=== PATIENT | female | born 1955 | race Caucasian/White ===

== ENCOUNTER → 2016-02-23 | Outpatient (CLI) | payer OTHER ==
--- NOTE | 2016-02-23 12:32 | BD ---
EXAMINATION TYPE: MG DEXA axial skeleton. DATE OF EXAM: 02/23/2016 7:40 AM COMPARISON: Prior exam inserted July 2010 CLINICAL HISTORY: no signs or symptoms post menopausal Height: 5'5 Weight: 185 FRAX RISK QUESTIONS: Alcohol (3 or more units per day): no Family History (Parent hip fracture): no Glucocorticoids (More than 3mos): no (Ex: prednisone, prednisolone, methylprednisolone, dexamethasone, and hydrocortisone). History of Fracture in Adulthood: no Secondary Osteoporosis: 1. Type 1 Diabetes: no 2. Hyperthyroidism: no 3. Menopause before 45: no 4. Malnutrition: no 5. Chronic liver disease: no Rheumatoid Arthritis: no Current Tobacco Use: no RISK FACTORS HISTORY OF: Postmenopausal woman: Yes MEDICATIONS: Additional Medications: Additional History: post menopausal EXAM MEASUREMENTS: Bone mineral densitometry was performed using the [employer] System. Bone mineral density as measured about the Lumbar spine is: ----- L1-L4(G/cm2): 1.383 T Score Values are as follows: ----- L2: 1.1 ----- L3: 2.0 ----- L4: 2.2 ----- L1-L4: 1.7 Bone mineral density has: Increased 1.1% since study of: 07/23/2010 Bone mineral density about the R hip (g/cm2): 0.985 Bone mineral density about the L hip (g/cm2): 1.090 T Score values are as follows: -----R Neck: 0.4 -----L Neck: -0.4 -----R Intertrochanter: 0.5 -----L Intertrochanter: 0.2 Bone mineral density has: Decreased -1.8% since study of: 07/23/2010 IMPRESSION: Normal (Values between +1 and -1 indicate normal bone mass) NOTE: T-SCORE=SD OF THE YOUNG ADULT MEAN.
--- NOTE | 2016-02-24 11:52 | MM ---
Reason for exam: screening (asymptomatic). Last mammogram was performed 1 year and 4 months ago. History: Patient is postmenopausal. Physical Findings: A clinical breast exam by your physician is recommended on an annual basis and results should be correlated with mammographic findings. MG 3D Screening Mammo W/Cad Bilateral CC and MLO view(s) were taken. Prior study comparison: October 31, 2014, bilateral MG screening mammo w CAD. January 18, 2013, bilateral digital screening mammo w/CAD. There are scattered fibroglandular densities. Finding: There are typically benign calcifications in both breasts. There is a chronic nodularity in the right breast. No significant changes in finding since October 31, 2014 and January 18, 2013. ASSESSMENT: Benign, BI-RAD 2 RECOMMENDATION: Routine screening mammogram of both breasts in 1 year.
== END | disposition home or self-care (01) ==
LOC: RADMAMWWP 07:00
PROVIDERS: ATTEND Obstetrics & Gynecology
DX: Z12.31 Encounter for screening mammogram for malignant neoplasm of breast (principal); Z78.0 Asymptomatic menopausal state
CPT/HCPCS: 77080; 77052; 77063; G0202

== ENCOUNTER → 2017-04-18 | Outpatient (CLI) | payer OTHER ==
--- NOTE | 2017-04-19 13:12 | MM ---
Reason for exam: screening (asymptomatic). Last mammogram was performed 1 year and 2 months ago. History: Patient is postmenopausal. Physical Findings: A clinical breast exam by your physician is recommended on an annual basis and results should be correlated with mammographic findings. MG 3D Screening Mammo W/Cad Bilateral CC and MLO view(s) were taken. Prior study comparison: February 23, 2016, bilateral MG 3d screening mammo w/cad. October 31, 2014, bilateral MG screening mammo w CAD. The breast tissue is heterogeneously dense. This may lower the sensitivity of mammography. No suspicious abnormality. No significant changes when compared with prior studies. ASSESSMENT: Negative, BI-RAD 1 RECOMMENDATION: Routine screening mammogram of both breasts in 1 year.
== END | disposition home or self-care (01) ==
LOC: RADMAMWWP 06:55
PROVIDERS: ATTEND Obstetrics & Gynecology
DX: Z12.31 Encounter for screening mammogram for malignant neoplasm of breast (principal)
CPT/HCPCS: 77063; 77067

== ENCOUNTER → 2018-05-15 | Outpatient (CLI) | payer OTHER ==
--- NOTE | 2018-05-15 11:18 | MM ---
Reason for exam: screening (asymptomatic). Last mammogram was performed 1 year and 1 month ago. History: Patient is postmenopausal. Physical Findings: A clinical breast exam by your physician is recommended on an annual basis and results should be correlated with mammographic findings. MG 3D Screening Mammo W/Cad Bilateral CC and MLO view(s) were taken. Prior study comparison: April 18, 2017, bilateral MG 3d screening mammo w/cad. February 23, 2016, bilateral MG 3d screening mammo w/cad. The breast tissue is heterogeneously dense. This may lower the sensitivity of mammography. Finding #1: There is a 7 mm equal density (isodense), obscured mass in the subareolar position of the right breast. Finding #2: There are typically benign calcifications in both breasts. ASSESSMENT: Incomplete: need additional imaging evaluation, BI-RAD 0 RECOMMENDATION: Special view mammogram of the right breast. If lesion persists on supplemental views, image directed ultrasound is recommended. [facility] will attempt to contact patient to return for supplemental views and ultrasound if indicated.
== END | disposition home or self-care (01) ==
LOC: RADMAMWWP 06:57
PROVIDERS: ATTEND Obstetrics & Gynecology
DX: Z12.31 Encounter for screening mammogram for malignant neoplasm of breast (principal)
CPT/HCPCS: 77063; 77067

== ENCOUNTER → 2018-05-22 | Outpatient (CLI) | payer OTHER ==
--- NOTE | 2018-05-22 10:58 | MM ---
Reason for exam: additional evaluation requested from abnormal screening. Last mammogram was performed less than 1 month ago. History: Patient is postmenopausal. Physical Findings: Nurse did not find any significant physical abnormalities on exam. MG 3D Work Up W/Cad RT Spot compression CC, spot compression MLO, and ML view(s) were taken of the right breast. Prior study comparison: May 15, 2018, bilateral MG 3d screening mammo w/cad. April 18, 2017, bilateral MG 3d screening mammo w/cad. There are scattered fibroglandular densities. Benign calcifications in the right breast. No significant new findings when compared with previous films. These results were verbally communicated with the patient and result sheet given to the patient on 05/22/18. ASSESSMENT: Probably benign, BI-RAD 3 RECOMMENDATION: Follow-up diagnostic mammogram of the right breast in 6 months.
== END ==
LOC: RADMAMWWP 10:18
PROVIDERS: ATTEND Obstetrics & Gynecology
DX: R92.8 Other abnormal and inconclusive findings on diagnostic imaging of breast (principal)
CPT/HCPCS: 77061; 77065

== ENCOUNTER → 2018-08-20 | Outpatient (CLI) | payer OTHER ==
[2018-08-20 08:37] LABS: Basophils % (A) 1 %; Eosinophils # (A) 0.1 k/uL (0-0.7); Eosinophils % (A) 3 %; HGB 13.5 gm/dL (11.4-16.0); Lymphocytes # (A) 1.3 k/uL (1.0-4.8); Lymphocytes % (A) 28 %; MCH 29.9 pg (25.0-35.0); MCHC 32.2 g/dL (31.0-37.0); MCV 92.7 fL (80.0-100.0); Mean Platelet Volume 7.6; Monocytes # (A) 0.3 k/uL (0-1.0); Monocytes % (A) 7 %; Neutrophils # (A) 2.7 k/uL (1.3-7.7); Neutrophils % (A) 58 %; Platelet Count 243 k/uL (150-450); RBC 4.53 m/uL (3.80-5.40); RDW 14.8 % (11.5-15.5); WBC 4.6 k/uL (3.8-10.6)
[2018-08-20 16:19] LABS: African American GFR (CKD) 111.6 (60.0-200.0); Albumin 4.3 g/dL (3.80-4.90); Albumin/Globulin Ratio 2.53 (1.60-3.17); Anion Gap 10.2 mmol/L (4.00-12.00); BUN/Creat Ratio 38.33 Ratio (12.00-20.00); Calcium 9.6 mg/dL (8.7-10.3); Carbon Dioxide 24.8 mmol/L (21.6-31.8); Globulin 1.7 g/dL (1.6-3.3); LDL Cholesterol,Calculated 112.8 mg/dL (0.0-131.0); Potassium 4.6 mmol/L (3.5-5.5); Total Bilirubin 0.4 mg/dL (0.2-1.2); Uric Acid 4.1 mg/dL (2.9-7.7); VLDL Calculation 13.2 mg/dL (5.00-40.00)
[2018-08-20 17:07] LABS: Hemoglobin A1C 5.9 % (4.0-6.0)
[2018-08-20 17:59] LABS: Amorphous Sediment,Urine Moderate /hpf; Appearance,Urine Turbid (Clear); Bilirubin,Urine Negative (Negative); Blood,Urine Negative (Negative); Calcium Oxalate Crystals,Urine Moderate /hpf; Color,Urine Yellow; Glucose,Urine (UA) Negative (Negative); Ketones,Urine Negative (Negative); Leukocyte Esterase,Urine Large (Negative); Mucus,Urine Moderate /hpf; Nitrite,Urine Negative (Negative); Protein,Urine Negative (Negative); Specific Gravity,Urine 1.025 (1.001-1.035); Squamous Epithelial Cell,Urine 3 /hpf (0-4); Urobilinogen,Urine <2.0 mg/dL (<2.0)
== END | disposition home or self-care (01) ==
LOC: LABWHC1 07:36
PROVIDERS: ATTEND Internal Medicine
DX: E78.5 Hyperlipidemia, unspecified (principal); E55.9 Vitamin D deficiency, unspecified; R73.03 Prediabetes; M19.90 Unspecified osteoarthritis, unspecified site
CPT/HCPCS: 36415; 80053; 80061; 81001; 82306; 82550; 83036; 84439; 84443; 84550; 85025

== ENCOUNTER → 2020-03-03 | Outpatient (CLI) | payer MEDICARE, OTHER ==
--- NOTE | 2020-03-04 09:11 | MM ---
Reason for exam: additional evaluation requested from prior study. Last mammogram was performed 1 year and 9 months ago. History: Patient is postmenopausal. Physical Findings: Nurse did not find any significant physical abnormalities on exam. MG 3D Diag Mammo W/Cad LASHA Bilateral CC and MLO view(s) were taken. Prior study comparison: May 22, 2018, right breast MG 3d work up w/cad RT. May 15, 2018, bilateral MG 3d screening mammo w/cad. There are scattered fibroglandular densities. Anterior central right CC asymmetric density relatively similar to more recent prior. Precautionary 6 month follow up recommended. These results were verbally communicated with the patient and result sheet given to the patient on 03/03/19. ASSESSMENT: Probably benign, BI-RAD 3 RECOMMENDATION: Follow-up diagnostic mammogram of the right breast in 6 months.
== END | disposition home or self-care (01) ==
LOC: RADMAMWWP 14:15
PROVIDERS: ATTEND Obstetrics & Gynecology
DX: R92.8 Other abnormal and inconclusive findings on diagnostic imaging of breast (principal)
CPT/HCPCS: 77066; G0279; 77062

== ENCOUNTER → 2020-03-11 | Outpatient (CLI) | payer MEDICARE, OTHER ==
--- NOTE | 2020-03-12 07:21 | US ---
EXAMINATION TYPE: US pelvis complete transvag DATE OF EXAM: 03/11/2020 COMPARISON: US 08/26/2011 CLINICAL HISTORY: N81.4 Uterovaginal prolapse. TECHNIQUE: . Transabdominal sonographic images of the pelvis were acquired. Transvaginal sonographi c images were medically necessary to better assess the following anatomy: Uterus Date of LMP: Years ago per patient EXAM MEASUREMENTS: Uterus: 5.4 x 3.2 x 4.1 cm Endometrial Stripe: 0.2 cm Right Ovary: 1.2 x 0.8 x 0.9 cm Left Ovary: Obscured by bowel gas 1. Uterus: Retroverted wnl 2. Endometrium: wnl 3. Right Ovary: wnl 4. Left Ovary: Obscured by overlying bowel gas 5. Bilateral Adnexa: wnl as visualized 6. Posterior cul-de-sac: wnl IMPRESSION: Normal pelvic ultrasound
== END | disposition home or self-care (01) ==
LOC: RADUSWWP 16:20
PROVIDERS: ATTEND Obstetrics & Gynecology
DX: N81.4 Uterovaginal prolapse, unspecified (principal)
CPT/HCPCS: 76830; 76856

== ENCOUNTER → 2020-09-22 | Outpatient (CLI) | payer MEDICARE, OTHER ==
--- NOTE | 2020-09-22 09:23 | MM ---
Reason for exam: additional evaluation requested from prior study. Last mammogram was performed 7 months ago. History: Patient is postmenopausal. Physical Findings: Nurse did not find any significant physical abnormalities on exam. MG 3D Diag Mammo W/Cad RT CC and MLO view(s) were taken of the right breast. Prior study comparison: March 03, 2020, bilateral MG 3d diag mammo w/cad LASHA. There are scattered fibroglandular densities. The previous lateral anterior nodular asymmetry does not persist. No significant new findings when compared with previous films. These results were verbally communicated with the patient and result sheet given to the patient on 09/22/20. ASSESSMENT: Negative, BI-RAD 1 RECOMMENDATION: Routine screening mammogram of both breasts in 6 months. Back on schedule.
== END | disposition home or self-care (01) ==
LOC: RADMAMWWP 08:20
PROVIDERS: ATTEND Obstetrics & Gynecology
DX: N64.89 Other specified disorders of breast (principal); Z78.0 Asymptomatic menopausal state
CPT/HCPCS: 77065; G0279; 77061

== ENCOUNTER → 2021-05-11 | Outpatient (CLI) | payer MEDICARE, OTHER ==
--- NOTE | 2021-05-13 14:53 | MM ---
Reason for exam: screening (asymptomatic). Last mammogram was performed 8 months ago. History: Patient is postmenopausal. Physical Findings: A clinical breast exam by your physician is recommended on an annual basis and results should be correlated with mammographic findings. MG 3D Screening Mammo W/Cad Bilateral CC and MLO view(s) were taken. Prior study comparison: September 22, 2020, right breast MG 3d diag mammo w/cad RT. March 03, 2020, bilateral MG 3d diag mammo w/cad LASHA. There are scattered fibroglandular densities. No significant changes when compared with prior studies. ASSESSMENT: Benign, BI-RAD 2 RECOMMENDATION: Routine screening mammogram of both breasts in 1 year.
== END | disposition home or self-care (01) ==
LOC: RADMAMWWP 13:26
PROVIDERS: ATTEND Obstetrics & Gynecology
DX: Z12.31 Encounter for screening mammogram for malignant neoplasm of breast (principal); Z78.0 Asymptomatic menopausal state
CPT/HCPCS: 77063; 77067

== ENCOUNTER → 2021-06-11 | Outpatient (CLI) | payer MEDICARE, OTHER ==
--- NOTE | 2021-06-11 16:53 | BD ---
EXAMINATION TYPE: Axial Bone Density DATE OF EXAM: 06/11/2021 COMPARISON: NONE CLINICAL HISTORY: 66 year old Female. ICD-10 CODE: N95.1 POST MENOPAUSAL SYMPTOMS Height: 65 Weight: 184.3 FRAX RISK QUESTIONS: Alcohol (3 or more units per day): no Family History (Parent hip fracture): no Glucocorticoids (More than 3mos): no (Ex: prednisone, prednisolone, methylprednisolone, dexamethasone, and hydrocortisone). History of Fracture in Adulthood: no Secondary Osteoporosis: 1. Type 1 Diabetes: no 2. Hyperthyroidism: no 3. Menopause before 45: no 4. Malnutrition: no 5. Chronic liver disease: no Rheumatoid Arthritis: no Current Tobacco Use: no RISK FACTORS HISTORY OF: Surgery to Spine/Hip(right/left)/Wrist (right/left): no Family History of Osteoporosis: no Active: yes Diet low in dairy products/other sources of calcium: yes Postmenopausal woman: yes Lost more than 2 inches in height since high school: no MEDICATIONS: Additional History: EXAM MEASUREMENTS: Bone mineral densitometry was performed using the [employer] System. Bone mineral density as measured about the Lumbar spine is: ----- L1-L4(G/cm2): 1.364 T Score Values are as follows: ----- L1: 0.6 ----- L2: 1.0 ----- L3: 1.9 ----- L4: 2.2 ----- L1-L4: 1.5 Bone mineral density has: decreased -0.6 % since study of: 02.23.2016 Bone mineral density about the R hip (g/cm2): 1.014 Bone mineral density about the L hip (g/cm2): 1.053 T Score values are as follows: -----R Neck: -0.2 -----L Neck: 0.1 -----R Total: 05 -----L Total: 0.7 Bone mineral density has: decreased -0.3 % since study of: 02.23.2016 FRAX%s: The graph provided illustrates a 6.9% chance for a major osteoporotic fx and a 0.3% chance fo r the hips probability for fx in 10 years time. IMPRESSION: Normal (Values between +1 and -1 indicate normal bone mass). Consider repeating this study in 5 year s or sooner if there is some new clinical indication. NOTE: T-SCORE=SD OF THE YOUNG ADULT MEAN.
== END | disposition home or self-care (01) ==
LOC: RADBDWWP 07:19
PROVIDERS: ATTEND Obstetrics & Gynecology
DX: N95.1 Menopausal and female climacteric states (principal)
CPT/HCPCS: 77080

== ENCOUNTER → 2021-07-02 | Outpatient (CLI) | payer MEDICARE, OTHER ==
[2021-07-02 16:04] LABS: Basophils # (A) 0.06 X 10*3/uL (0.00-0.10); Basophils % (A) 1.2 %; Eosinophils # (A) 0.09 X 10*3/uL (0.04-0.35); Eosinophils % (A) 1.7 %; HCT 44.5 % (37.2-46.3); HGB 14.4 g/dL (12.0-15.0); Immature Grans, Automated 0.4 %; Lymphocytes # (A) 1.55 X 10*3/uL (0.90-5.00); Lymphocytes % (A) 29.8 %; MCH 29.4 pg (27.0-32.0); MCHC 32.4 g/dL (32.0-37.0); MCV 90.8 fL (80.0-97.0); Mean Platelet Volume 10.8 fL (9.5-12.2); Monocytes # (A) 0.49 X 10*3/uL (0.20-1.00); Monocytes % (A) 9.4 %; NRBC Per 100 WBC 0 /100 WBCS (0.0-0.0); Neutrophils # (A) 2.99 X 10*3/uL (1.80-7.70); Neutrophils % (A) 57.5 %; Platelet Count 256 X 10*3/uL (140-440); RDW 14.4 % (11.5-14.5)
[2021-07-02 16:17] LABS: African American GFR (CKD) 102.1 (60.0-200.0); Anion Gap 12.3 mmol/L (10.00-18.00); BUN/Creat Ratio 26.2 Ratio (12.00-20.00); Blood Urea Nitrogen 18.6 mg/dL (9.0-27.0); Carbon Dioxide 26.7 mmol/L (20.0-27.5); Non-African American GFR(CKD) 88.1 (60.0-200.0); Potassium 4.7 mmol/L (3.5-5.5)
== END | disposition home or self-care (01) ==
LOC: LABPAT 07:43
PROVIDERS: ATTEND Obstetrics & Gynecology
DX: Z01.812 Encounter for preprocedural laboratory examination (principal)
CPT/HCPCS: 36415; 80048; 85025

== ENCOUNTER 2021-07-12 05:57 | Observation (INO) | payer MEDICARE, OTHER ==
[2021-07-09 09:07] VITALS: BMI 29.9
--- NOTE | 2021-07-11 07:38 | P.HPOB ---
History of Present Illness H&P Date: 07/11/21 Chief Complaint: Cystocele with uterine prolapse This is a 66 y.o. female, 3, para 3, who presents for total vaginal hysterectomy with anterior and posterior vaginal colporrhaphy, possible total abdominal hysterectomy with bilateral salpingooophorectomy, due to grade 3 uterine prolapse, grade 3 cystocele, and grade 1 rectocele. She was evaluated by Dr. Hernandez who does not feel she needs a sling at the time of surgery. Her symptoms include vaginal mass, vaginal irritation and pressure, but no urinary incontinence or pain. Her symptoms have gradually progressed over the last couple years and started after prolonged standing. OB Hx: . History of 3 vaginal deliveries. [employer] Hx: No history of STDs Social Hx: . Retired. Review of Systems Constitutional: Denies chills, Denies fever Eyes: denies blurred vision, denies pain Ears, nose, mouth and throat: Denies headache, Denies sore throat Cardiovascular: Denies chest pain, Denies shortness of breath Respiratory: Denies cough Gastrointestinal: Denies abdominal pain, Denies diarrhea, Denies nausea, Denies vomiting Genitourinary: Reports prolapse symptoms, Denies dysuria, Denies hematuria, Denies stress incontinence Musculoskeletal: Reports myalgias Integumentary: Denies pruritus, Denies rash Neurological: Denies numbness, Denies weakness Psychiatric: Denies anxiety, Denies depression Past Medical History Past Medical History: Osteoarthritis (OA) Additional Past Medical History / Comment(s): uterine prolapse History of Any Multi-Drug Resistant Organisms: None Reported Past Surgical History: Joint Replacement, Tubal Ligation Additional Past Surgical History / Comment(s): arthroscopic jose g knees, partial left knee replaced; D&C w/hysteroscopy Past Anesthesia/Blood Transfusion Reactions: No Reported Reaction Past Psychological History: No Psychological Hx Reported Smoking Status: Never smoker Past Alcohol Use History: Occasional Past Drug Use History: None Reported - Past Family History Mother Family Medical History: No Reported History Father Family Medical History: Diabetes Mellitus Medications and Allergies Home Medications Medication Instructions Recorded Confirmed Type Calcium Carbonate/Vitamin D3 1 each PO DAILY 07/09/21 07/09/21 History [Calcium 600 mg-Vit D3 10 mcg (400 Unit)] Cholecalciferol [Vitamin D3 (25 50 mcg PO DAILY 07/09/21 07/09/21 History Mcg = 1000 Iu)] L.acidoph,Paracasei, B.lactis 1 each PO DAILY 07/09/21 07/09/21 History [Probiotic] Turmeric Root Extract [Turmeric] 1,000 mg PO DAILY 07/09/21 07/09/21 History Vitamin B Complex 1 each PO DAILY 07/09/21 07/09/21 History Allergies Allergy/AdvReac Type Severity Reaction Status Date / Time codeine AdvReac Nausea Verified 07/09/21 08:42 morphine AdvReac Nausea Verified 07/09/21 08:42 Exam Osteopathic Statement: *. No significant issues noted on an osteopathic structural exam other than those noted in the History and Physical/Consult. Gen: well developed, well-nourished female in no acute distress HEENT: within normal limits Heart: regular rate and rhythm Lungs: clear to auscultation bilaterally Abdomen: soft, non-tender Pelvic: uterus small, non-tender, with 3rd degree prolapse, grade 3 cystocele, and grade 1 rectocele. Small cervical polyp also noted. No adnexal masses or tenderness noted. Extremities: neg. Sari's Assessment and Plan (1) Cystocele with uterine prolapse Status: Acute Code(s): N81.4 - UTEROVAGINAL PROLAPSE, UNSPECIFIED SNOMED Code(s): 3870024715 Plan: Proceed with total vaginal hysterectomy with anterior and posterior vaginal repair, possible total abdominal hysterectomy with bilateral salpingooophorectomy. I have discussed the risks, benefits, and alternative therapies for the above- mentioned procedure and for both sedation/anesthesia as well as necessary blood products administration, if indicated, as they pertain to this patient. The patient has indicated her understanding and acceptance of the risks and procedures discussed.
[2021-07-12] MEDS ORDERED: LIDOCAINE 1% (10MG/ML) FOR IV START INTRADERMA PRN (06:10)
[2021-07-12] MEDS ORDERED: DEXAMETHASONE SOD PHOSPHATE 4 MG/ML 1 ML VIAL IV ONE (06:10)
[2021-07-12] MEDS ORDERED: ONDANSETRON 4 MG/2 ML VIAL IVP ONE (06:10)
[2021-07-12] MEDS ORDERED: ONDANSETRON 4 MG/2 ML VIAL ONE (06:36)
[2021-07-12] MEDS: LACTATED RINGERS 1,000 ML IV SCH (06:45)
[2021-07-12] MEDS ORDERED: fentaNYL (PF) 50 MCG/ML 2 ML AMP IV ONE (06:59)
[2021-07-12] MEDS ORDERED: MIDAZOLAM 2 MG/2 ML VIAL IV ONE (06:59)
[2021-07-12] MEDS ORDERED: fentaNYL (PF) 50 MCG/ML 2 ML AMP IV PRN (07:00)
[2021-07-12] MEDS ORDERED: GLYCOPYRROLATE 0.2 MG/ML 2 ML VIAL ONE (07:28)
[2021-07-12] MEDS ORDERED: MIDAZOLAM 2 MG/2 ML VIAL ONE (07:28)
[2021-07-12] MEDS ORDERED: fentaNYL (PF) 50 MCG/ML 2 ML AMP ONE (07:28)
[2021-07-12] MEDS ORDERED: MORPHINE SULFATE (PF) 0.3 MG/0.3 ML SYR ONE (07:28)
[2021-07-12] MEDS ORDERED: LIDOCAINE 2% INJ 20 MG/ML (2 ML VIAL) ONE (07:28)
[2021-07-12] MEDS ORDERED: NEOSTIGMINE 1 MG/ML 10 ML VIAL ONE (07:28)
[2021-07-12] MEDS ORDERED: SUCCINYLCHOLINE CHLORIDE 100 MG/5 ML SYR IV ONE (07:28)
[2021-07-12] MEDS ORDERED: diphenhydrAMINE 50 MG/ML 1 ML VIAL ONE (07:28)
[2021-07-12] MEDS ORDERED: ROCURONIUM 10 MG/ML (5 ML VIAL) IV ONE (07:28)
[2021-07-12] MEDS ORDERED: PROPOFOL 10 MG/ML 20 ML VIAL IV ONE (07:28)
[2021-07-12] MEDS ORDERED: BACITRACIN ZINC 500 UNIT/GM OINT 28.4 GM TUBE TOPICAL ONE ×2 (07:59→08:51)
[2021-07-12] MEDS ORDERED: LACTATED RINGERS 1,000 ML IV ONE (09:01)
--- NOTE | 2021-07-12 09:04 | P.OP ---
Date of Procedure: 07/12/21 Preoperative Diagnosis: Uterine prolapse with cystocele and rectocele Postoperative Diagnosis: Same Procedure(s) Performed: Total vaginal hysterectomy with anterior and posterior vaginal colporrhaphy Anesthesia: GETA, spinal (Duramorph) Surgeon: Keiry Vazquez [employer]: Michelle Corbin Estimated Blood Loss (ml): 60 Pathology: other (Uterus with cervix, vaginal mucosa) Condition: stable Disposition: floor Indications for Procedure: This is a 66 y.o. female, 3, para 3, who presents for total vaginal hysterectomy with anterior and posterior vaginal colporrhaphy, possible total abdominal hysterectomy with bilateral salpingooophorectomy, due to grade 3 uterine prolapse, grade 3 cystocele, and grade 1 rectocele. She was evaluated by Dr. Hernandez who does not feel she needs a sling at the time of surgery. Her symptoms include vaginal mass, vaginal irritation and pressure, but no urinary incontinence or pain. Her symptoms have gradually progressed over the last couple years and started after prolonged standing. Operative Findings: Uterus with grade 3 prolapse, grade 3 cystocele, grade 1 rectocele. Small cervical polyp is also noted. Ovaries appear small and atrophic. Tubes appear normal. Description of Procedure: The patient is taken the operating room where she is placed in the dorsal lithotomy position. She is prepped and draped in the normal sterile fashion. Next a weighted speculum was placed in the patient's vagina and a right angle retractor was used to visualize the cervix. The anterior lip of the cervix is grasped with a single-tooth tenaculum. Next the cervix was circumferentially injected with one amp of epinephrine to 150 mL of normal saline. Next the cervix was circumscribed with a scalpel. The vaginal mucosa was pushed away from the cervix with a sponge. Next the uterosacral ligaments are clamped on either side with a Eliu clamp, cut with Calloway scissors, and then sutured with 0 Vicryl suture in a Eliu transfixion stitch and then held on either side with a straight hemostat. Next the posterior peritoneal reflection was identified and entered sharply with Calloway scissors. The edges of the vaginal mucosa was then tagged with 0 Vicryl suture and held with a curved hemostat for identification. Next a longbilled weighted speculum was placed through the posterior peritoneal reflection. Next the cardinal ligaments were clamped on either side with Eliu clamps, cut with Calloway scissors, and then sutured with 0 Vicryl suture in Eliu transfixion stitches and cut. Next the vesicouterine peritoneum reflection is identified and entered sharply with Metzenbaum scissors. A right angle bladder retractor is then used to retract the bladder. The uterine arteries are clamped on either side with Eliu clamps, cut with Calloway scissors, and then sutured with 0 Vicryl suture in Eliu transfixion stitches. The round ligament is also clamped on either side with a Eliu clamp, cut with Calloway scissors, and sutured with 0 Vicryl suture in Eliu transfixion stitches. Next the uterine ovarian ligament and tube were clamped on either side with a Eliu clamp, cut with Calloway scissors, and then sutured with 0 Vicryl suture in a [id number] stitch, flashed, and then free tied with another suture of 0 Vicryl suture. These pedicles were held with a straight Evon for identification. The uterus is removed from the field. Excellent hemostasis is noted. Next the peritoneum is closed with 0 Vicryl suture in a pursestring fashion incorporating all the held ligaments. Both tubes and ovaries are visualized and appeared normal. Next the uterine ovarian ligaments are tied together in the middle and cut. Next attention was turned to the cystocele repair. The edges of the vaginal mucosa are held with 2 Allis clamps. Next injection of the same epinephrine solution is injected underneath the mucosa upwards towards the urethra. Metzenbaum scissors were used to dissect underneath the vaginal mucosa and cut along the way up to just below the urethra. Sharp and blunt dissection are used to dissect the bladder away from the vaginal mucosa. Once the bladder is freed, the cystocele is reduced with 0 Vicryl suture in [id number] stitches on either side of the cystocele. Next the edges of the vaginal mucosa are trimmed with Metzenbaum scissors. Next the vaginal mucosa is sutured with 0 Vicryl suture in a running locked fashion incorporating the vaginal cuff. The uterosacral ligaments were also tied together in the midline prior to completely closing the vaginal cuff. Excellent hemostasis is noted. The Newell catheter is inserted and clear urine is noted. Next attention is turned to the posterior repair. The introitus is grasped at the 4 and 8 o'clock position with an Allis clamps. Injection of the same epinephrine solution is injected vaginal mucosa upwards towards the cuff. Next a small triangular piece of tissue is removed between the 2 Allis clamps on the perineum. Metzenbaum scissors are used to d issect underneath the vaginal mucosa upwards towards the cuff cutting along the way. The edges of the vaginal mucosa are held with Allis clamps. The rectocele was then reduced with 0 Vicryl suture in interrupted [id number] stitches. The edges of the vaginal mucosa are trimmed with Metzenbaum scissors. The vaginal mucosa is then sutured with 0 Vicryl suture in a running locked fashion up to the introitus and then brought underneath the skin and whipstitched in a running fashion up to the apex of the perineum and then brought through the skin and closed in a subcuticular fashion up to the introitus excellent hemostasis is noted. Next the vagina is packed with one-inch iodoform gauze with bacitracin ointment. All sponge and needle counts are correct and the patient is then taken to recovery room in stable condition.
[2021-07-12] MEDS ORDERED: HYDROmorphone 0.5 MG/0.5 ML SYRINGE IVP PRN (09:08)
[2021-07-12] MEDS ORDERED: NALOXONE 0.4 MG/ML 1 ML VIAL IV PRN (09:08)
[2021-07-12] MEDS ORDERED: diphenhydrAMINE 50 MG/ML 1 ML VIAL IVP PRN ×2 (09:08→09:42)
[2021-07-12] MEDS ORDERED: SIMETHICONE 80 MG CHEWABLE PO PRN (09:42)
[2021-07-12] MEDS ORDERED: KETOROLAC 15 MG/ML 1 ML VIAL IVP PRN (09:42)
[2021-07-12] MEDS ORDERED: ACETAMINOPHEN IV (For NPO) 1,000 MG in EMPTY BAG 1 BAG IVPB ONE (09:42)
[2021-07-12] MEDS ORDERED: IBUPROFEN 600 MG TAB PO PRN (09:42)
[2021-07-12] MEDS ORDERED: ONDANSETRON 4 MG/2 ML VIAL IVP PRN (09:42)
[2021-07-12] MEDS ORDERED: ZOLPIDEM 5 MG TAB PO PRN (09:42)
[2021-07-12] MEDS ORDERED: METOCLOPRAMIDE 5 MG/ML 2 ML VIAL IVP PRN (09:42)
--- NOTE | 2021-07-12 10:24 | P.ANPRN ---
Procedure Note - Anesthesia - Epidural/Spinal Spinal Time Out Performed: Yes Date of Procedure: 07/12/21 Procedure Start Time: 06:58 Procedure Stop Time: 07:09 Location of Patient: PreOp Indication: Acute Post-Operative Pain Sedation Type: Sedate with meaningful contact maintained Preparation: Sterile Prep Position: Sitting Needle Guage: 25 Injectate: Other (Duramorph 300mcg + fentanyl 25mcg) Blood Aspirated: No Pain Paresthesia on Injection Noted: No Events: Uneventful and Well Tolerated
[2021-07-12] MEDS: SENNOSIDES-DOCUSATE SODIUM 1 EACH TAB PO SCH ×2 (15:17→20:10)
[2021-07-13] MEDS: LACTATED RINGERS 1,000 ML IV SCH (06:56)
[2021-07-13 07:38] LABS: Basophils % (A) 0 %; Eosinophils % (A) 0 %; HCT 38.6 % (34.0-46.0); HGB 12.4 gm/dL (11.4-16.0); Lymphocytes # (A) 1.7 k/uL (1.0-4.8); Lymphocytes % (A) 18 %; MCH 29.9 pg (25.0-35.0); MCV 93.2 fL (80.0-100.0); Mean Platelet Volume 7.8; Monocytes # (A) 0.7 k/uL (0-1.0); Monocytes % (A) 7 %; Neutrophils # (A) 6.8 k/uL (1.3-7.7); Neutrophils % (A) 73 %; Platelet Count 219 k/uL (150-450); RBC 4.14 m/uL (3.80-5.40); RDW 13.8 % (11.5-15.5); WBC 9.3 k/uL (3.8-10.6)
[2021-07-13] MEDS ORDERED: ACETAMINOPHEN TAB 325 MG TAB PO PRN (07:40)
[2021-07-13 08:13] VITALS: BP 130/70; PULSE 74; RESP 14; TEMP 98.3
--- NOTE | 2021-07-13 08:40 | P.DS ---
Providers Date of admission: 07/12/2021 Expected date of discharge: 07/13/21 Attending physician: Keiry Vazquez Primary care physician: Tanner Norton - Discharge Diagnosis(es) (1) Cystocele with uterine prolapse Current Visit: No Status: Acute Hospital Course: This is a 66-year-old female who underwent a total vaginal hysterectomy with anterior and posterior vaginal colporrhaphy on 07/12/2021. Postoperatively she has done well. She did have some dizziness last night and therefore has not ambulated yet. Her catheter was removed this morning. She has not urinated yet. She is passing some flatus but no bowel movement yet. Pain is well- controlled at this point. Bleeding has been minimal. Vital signs are stable. Abdomen is soft with positive bowel sounds 4. Drea-pad shows scant serosanguineous discharge. Impression is status post total vaginal hysterectomy with anterior and posterior vaginal colporrhaphy postoperative day #1. Plan is to discharge home later today as long as she is urinating without difficulty and her pain is well-controlled. She will ambulate today and when she is able to urinate adequate amounts she will be discharged home. She is advised to follow up with me in the office in 2 weeks. She is advised to call the office if she has any further questions or concerns prior to her postoperative appointment. Routine postoperative instructions are given. She is advised no heavy lifting or straining. Diet as tolerated. She may use Motrin or Tylenol as needed for pain. Procedures: Total vaginal hysterectomy with anterior and posterior vaginal colporrhaphy on 07/12/2021 Patient Condition at Discharge: Stable Plan - Discharge Summary Discharge Rx Participant: Yes New Discharge Prescriptions: New Ibuprofen [Motrin] 600 mg PO Q6HR PRN #60 tab PRN Reason: Mild Discomfort Continue Calcium Carbonate/Vitamin D3 [Calcium 600 mg-Vit D3 10 mcg (400 Unit)] 1 each PO DAILY Cholecalciferol [Vitamin D3 (25 Mcg = 1000 Iu)] 50 mcg PO DAILY Vitamin B Complex 1 each PO DAILY Turmeric Root Extract [Turmeric] 1,000 mg PO DAILY L.acidoph,Paracasei, B.lactis [Probiotic] 1 each PO DAILY Discharge Medication List Calcium Carbonate/Vitamin D3 [Calcium 600 mg-Vit D3 10 mcg (400 Unit)] 1 each PO DAILY 07/09/21 [History] Cholecalciferol [Vitamin D3 (25 Mcg = 1000 Iu)] 50 mcg PO DAILY 07/09/21 [History] L.acidoph,Paracasei, B.lactis [Probiotic] 1 each PO DAILY 07/09/21 [History] Turmeric Root Extract [Turmeric] 1,000 mg PO DAILY 07/09/21 [History] Vitamin B Complex 1 each PO DAILY 07/09/21 [History] Ibuprofen [Motrin] 600 mg PO Q6HR PRN #60 tab 07/13/21 [Rx] Follow up Appointment(s)/Referral(s): Keiry Vazquez DO [Doctor of Osteopathic Medicine] - 2 Weeks Activity/Diet/Wound Care/Special Instructions: Activity as tolerated. Diet as tolerated. May shower, but no tub baths for 1 week. No intercourse for 6 weeks. No heavy lifting. May drive as long is normal reaction time and no narcotic pain medication Discharge Disposition: HOME SELF-CARE
--- NOTE | 2021-07-13 09:32 | P.PN ---
Progress Note - Text Progress Note Date: 07/13/21 (647) Anesthesia Postop day 1 Subjective: Status Post vaginal hysterectomy with Duramorph. Patient seen and examined. Doing well without complaint. VAS 1-2. Denies nausea vomiting or pruritus. Afebrile. Gross lower extremity strength intact. . Without apparent anesthetic complications. Objective: Vital signs reviewed Heart: Regular Rate Lungs: Good chest excursion Abdomen: Appears nondistended Assessment: Status post vaginal hysterectomy with Duramorph postop day 1 Plan: Continue current care with your medical management. Anticipated and the Duramorph this morning, you may see increased pain needs around this time.
[2021-07-13] MEDS: SENNOSIDES-DOCUSATE SODIUM 1 EACH TAB PO SCH (09:34)
== END 2021-07-13 12:10 | disposition home or self-care (01) ==
LOC: OR 05:57 → 4FBP 09:01 → OR 07-13 07:26
PROVIDERS: ADMIT Obstetrics & Gynecology; ATTEND Obstetrics & Gynecology
DX: N81.3 Complete uterovaginal prolapse (principal); N81.2 Incomplete uterovaginal prolapse; N84.1 Polyp of cervix uteri; N80.0 Endometriosis of uterus; M19.90 Unspecified osteoarthritis, unspecified site; Z96.652 Presence of left artificial knee joint; Z98.890 Other specified postprocedural states; Z83.3 Family history of diabetes mellitus; Z88.5 Allergy status to narcotic agent
CPT/HCPCS: 85025; 88307; 58260; 57260; G0378; J2250; J0171; J1200; J1100; J2710; J0690; J2405; J2274; J3010; J1885; J0330; J2704; J2001; 86850; 86900; 86901; 88305

== ENCOUNTER → 2022-01-21 | Outpatient (CLI) | payer MEDICARE, OTHER ==
[2022-01-21 14:49] LABS: ALT 35 U/L (8-44); AST 20 U/L (13-35); Albumin 4.5 g/dL (3.8-4.9); Albumin/Globulin Ratio 1.89 (1.60-3.17); Alkaline Phosphatase 49 U/L (41-126); Blood Urea Nitrogen 19.2 mg/dL (9.0-27.0); Calcium 9.4 mg/dL (8.7-10.3); Carbon Dioxide 23.6 mmol/L (20.0-27.5); Chloride 104 mmol/L (96-109); Chol/HDL Ratio 3.31 Ratio; Globulin 2.4 g/dL (1.6-3.3); Glucose 154 mg/dL (70-110); Non-African American GFR(CKD) 92.3 (60.0-200.0); Potassium 4.1 mmol/L (3.5-5.5); Sodium 140 mmol/L (135-145); Total Protein 6.8 g/dL (6.2-8.2)
== END | disposition home or self-care (01) ==
LOC: LABWHC1 07:33
PROVIDERS: ATTEND Internal Medicine Geriatric Medicine
DX: E78.5 Hyperlipidemia, unspecified (principal); R73.03 Prediabetes
CPT/HCPCS: 36415; 80053; 80061; 83036

== ENCOUNTER → 2022-07-05 | Outpatient (CLI) | payer MEDICARE, OTHER ==
--- NOTE | 2022-07-06 08:27 | MM ---
Reason for Exam: Screening (asymptomatic). Last mammogram was performed 1 year(s) and 2 month(s) ago. Patient History: Menarche at age 10. First Full-Term at age 27. Hysterectomy at age 66. Postmenopausal. Patient has history of breast feeding. Risk Values: Jessie 5 year model risk: 2.1%. NCI Lifetime model risk: 6.7%. Prior Study Comparison: 03/03/2020 Bilateral Diagnostic Mammogram, [facility]. 09/22/2020 Right Diagnostic Mammogram, [facility]. 05/11/2021 Bilateral Screening Mammogram, [facility]. Tissue Density: There are scattered fibroglandular densities. Findings: Analyzed By CAD. There is no suspicious group of microcalcifications or new suspicious mass in either breast. Overall Assessment: Negative, BI-RAD 1 Management: Screening Mammogram of both breasts in 1 year. A clinical breast exam by your physician is recommended on an annual basis and results should be correlated with mammographic findings. Electronically signed and approved by: Tj Carlson D.O.
== END | disposition home or self-care (01) ==
LOC: RADMAMWWP 06:58
PROVIDERS: ATTEND Obstetrics & Gynecology
DX: Z12.31 Encounter for screening mammogram for malignant neoplasm of breast (principal); Z78.0 Asymptomatic menopausal state
CPT/HCPCS: 77063; 77067

== ENCOUNTER → 2023-12-27 | Outpatient (CLI) | payer MEDICARE, OTHER ==
--- NOTE | 2023-12-27 08:01 | MM ---
Reason for Exam: Screening (asymptomatic). Last mammogram was performed 1 year(s) and 6 month(s) ago. Patient History: Menarche at age 10. First Full-Term at age 27. Hysterectomy at age 66. Postmenopausal. Patient has history of breast feeding. Risk Values: Jessie 5 year model risk: 2.1%. NCI Lifetime model risk: 6.4%. Prior Study Comparison: 02/23/2016 Bilateral Screening Mammogram, [facility]. 04/18/2017 Bilateral Screening Mammogram, [facility]. 05/15/2018 Bilateral Screening Mammogram, [facility]. 05/22/2018 Right Diagnostic Mammogram, [facility]. 03/03/2020 Bilateral Diagnostic Mammogram, [facility]. 09/22/2020 Right Diagnostic Mammogram, [facility]. 05/11/2021 Bilateral Screening Mammogram, [facility]. 07/05/2022 Bilateral MG 3D screening mammo w/cad, [facility]. Tissue Density: The breasts are heterogeneously dense, which may obscure small masses. Findings: Analyzed By CAD. There is no suspicious group of microcalcifications or new suspicious mass in either breast. Subcentimeter nodule upper outer quadrant right breast with scattered margins. Overall Assessment: Incomplete: need additional imaging evaluation, BI-RAD 0 Management: Diagnostic Mammogram of the right breast. . Patient should continue monthly self-breast exams. A clinical breast exam by your physician is recommended on an annual basis. This exam should not preclude additional follow-up of suspicious palpable abnormalities. Note on Jessie scores and lifetime risk: 1. A Jessie score greater than 3% is considered moderate risk. If this is the case, consider specialist referral to assess eligibility for a risk reducing agent. 2. If overall lifetime risk for the development of breast cancer is 20% or higher, the patient may qualify for future screening with alternating mammogram and breast MRI. [facility], , 12/27/2023 7:58 AM. Electronically signed and approved by: Tanner Goldberg M.D. Radiologis
--- NOTE | 2023-12-27 21:29 | BD ---
EXAMINATION TYPE: Axial Bone Density DATE OF EXAM: 12/27/2023 CLINICAL HISTORY: 68 years old Female. ICD-10 CODE: M81.0 Osteoporosis , Additional History: Height: 5 ft 4 in Weight: 173 FRAX RISK QUESTIONS: Alcohol (3 or more units per day): no Family History (Parent hip fracture): no Glucocorticoids (More than 3mos): no (Ex: prednisone, prednisolone, methylprednisolone, dexamethasone, and hydrocortisone). History of Fracture in Adulthood: no Secondary Osteoporosis: 1. Type 1 Diabetes: no 2. Hyperthyroidism: no 3. Menopause before 45: no 4. Malnutrition: no 5. Chronic liver disease: no Rheumatoid Arthritis: no Current Tobacco Use: no RISK FACTORS HISTORY OF: Surgery to Spine/Hip(right/left)/Wrist (right/left): no MEDICATIONS: Thyroid Medications: none Osteoporosis Medications: none EXAM MEASUREMENTS: Bone mineral densitometry was performed using the [employer]. Bone mineral density as measured about the Lumbar spine is: ----- L1-L4(G/cm2): 1.347 T Score Values are as follows: ----- L1: 0.2 ----- L2: 1.3 ----- L3: 1.8 ----- L4: 1.8 ----- L1-L4: 1.4 Z Score Values are as follows: ----- L1: 1.4 ----- L2: 2.6 ----- L3: 3.0 ----- L4: 3.0 ----- L1-L4: 2.6 Bone mineral density has: decreased -1.2 % since study of: 2021 Bone mineral density about the R hip (g/cm2): 1.031 Bone mineral density about the L hip (g/cm2): 1.002 T Score values are as follows: -----R Neck: 0.0 -----L Neck: -0.3 -----R Total: 0.4 -----L Total: 0.3 Z Score values are as follows: -----R Neck: 1.3 -----L Neck: 1.1 -----R Total: 1.5 -----L Total: 1.5 Bone mineral density has: decreased -2.7 % since study of: 2021 FRAX%s: The graph provided illustrates a 7.2 % chance for a major osteoporotic fx and a 0.4 % chance for the hips probability for fx in 10 years time. IMPRESSION: Normal (Values between +1 and -1 indicate normal bone mass). Consider repeating this study in 5 year s or sooner if there is some new clinical indication. NOTE: T-SCORE=SD OF THE YOUNG ADULT MEAN. [facility], , 12/27/2023 9:27 PM
== END | disposition home or self-care (01) ==
LOC: RADMAMWWP 06:51
PROVIDERS: ATTEND Internal Medicine Geriatric Medicine
DX: Z12.31 Encounter for screening mammogram for malignant neoplasm of breast (principal); M81.0 Age-related osteoporosis without current pathological fracture; Z78.0 Asymptomatic menopausal state; R92.333 Mammographic heterogeneous density, bilateral breasts
CPT/HCPCS: 77063; 77067; 77080

== ENCOUNTER → 2023-12-28 | Outpatient (CLI) | payer MEDICARE, OTHER ==
--- NOTE | 2023-12-28 11:01 | MM ---
Reason for Exam: Additional evaluation requested from abnormal screening. Last screening mammogram was performed less than 1 month ago. Patient History: Menarche at age 10. First Full-Term at age 27. Hysterectomy at age 66. Postmenopausal. Patient has history of breast feeding. Risk Values: Jessie 5 year model risk: 2.1%. NCI Lifetime model risk: 6.4%. Prior Study Comparison: 05/15/2018 Bilateral Screening Mammogram, [facility]. 05/22/2018 Right Diagnostic Mammogram, [facility]. 03/03/2020 Bilateral Diagnostic Mammogram, [facility]. 09/22/2020 Right Diagnostic Mammogram, [facility]. 07/05/2022 Bilateral MG 3D screening mammo w/cad, [facility]. 12/27/2023 Bilateral MG 3D screening mammo w/cad, [facility]. Tissue Density: Right: There are scattered areas of fibroglandular density. Findings: Analyzed By CAD. No significant change. Under compression the nodular density appears to disperse. No suspicious groups of microcalcifications, spiculated or lobular masses, architectural distortion or other secondary signs of malignancy are mammographically apparent. Overall Assessment: Probably benign, BI-RAD 3 Management: Diagnostic Mammogram of the right breast in 6 months. A negative mammogram report should not preclude additional follow up of suspicious palpable abnormalities. Patient should continue monthly self breast exam. A clinical breast exam by your physician is recommended on an annual basis and results should be correlated with mammographic findings. Note on Jessie scores and lifetime risk: 1. A Jessie score greater than 3% is considered moderate risk. If this is the case, consider specialist referral to assess eligibility for a risk reducing agent. 2. If overall lifetime risk for the development of breast cancer is 20% or higher, the patient may qualify for future screening with alternating mammogram and breast MRI. [facility], , 12/28/2023 10:33 AM. Electronically signed and approved by: [place] Thomas D.O. Radiologis
== END | disposition home or self-care (01) ==
LOC: RADMAMWWP 10:05
PROVIDERS: ATTEND Internal Medicine Geriatric Medicine
DX: R92.8 Other abnormal and inconclusive findings on diagnostic imaging of breast (principal); R92.321 Mammographic fibroglandular density, right breast; Z78.0 Asymptomatic menopausal state
CPT/HCPCS: 77065; G0279; 77061

== ENCOUNTER → 2024-08-29 | Outpatient (CLI) | payer MEDICARE ==
--- NOTE | 2024-08-29 08:36 | MM ---
Reason for Exam: Follow-up at short interval from prior study. Last screening mammogram was performed 8 month(s) ago. Patient History: Menarche at age 10. First Full-Term at age 27. Hysterectomy at age 66. Postmenopausal. Patient has history of breast feeding. Risk Values: Jessie 5 year model risk: 2.1%. NCI Lifetime model risk: 6.1%. Prior Study Comparison: 07/05/2022 Bilateral MG 3D screening mammo w/cad, [facility]. 12/27/2023 Bilateral MG 3D screening mammo w/cad, [facility]. 12/28/2023 Right MG 3D work up w/cad RT, [facility]. Tissue Density: Right: There are scattered areas of fibroglandular density. Findings: Analyzed By CAD. No suspicious new mass or distortion in the right breast. Overall Assessment: Negative, BI-RAD 1 Management: Screening Mammogram of both breasts in 4 months. . Results were given to the patient verbally at the time of exam. Patient should continue monthly self-breast exams. A clinical breast exam by your physician is recommended on an annual basis. This exam should not preclude additional follow-up of suspicious palpable abnormalities. Note on Jessie scores and lifetime risk: 1. A Jessie score greater than 3% is considered moderate risk. If this is the case, consider specialist referral to assess eligibility for a risk reducing agent. 2. If overall lifetime risk for the development of breast cancer is 20% or higher, the patient may qualify for future screening with alternating mammogram and breast MRI. [facility], , 08/29/2024 7:45 AM. Electronically signed and approved by: Ambrose Leach M.D.
== END | disposition home or self-care (01) ==
LOC: RADMAMWWP 07:11
PROVIDERS: ATTEND Internal Medicine Geriatric Medicine
DX: R92.8 Other abnormal and inconclusive findings on diagnostic imaging of breast (principal); R92.321 Mammographic fibroglandular density, right breast; Z78.0 Asymptomatic menopausal state
CPT/HCPCS: 77061; 77065